=== PATIENT | female | born 1950 | race Caucasian/White ===

== ENCOUNTER 2017-02-24 14:28 | Inpatient (IN) | payer MEDICAID, MEDICARE ==
[~2017-02-24] VITALS: Ht 154.9 cm; Wt 61.2 kg
--- NOTE | 2017-02-24 14:55 | NUR ---
DR GIBBS AT THE BEDSIDE FOR EVAL AND EXAM.
[2017-02-24] MEDS ORDERED: IV NORMAL SALINE 1000 ML BAG IV ONE (15:00)
[2017-02-24] MEDS ORDERED: ONDANSETRON 4 MG/2 ML VIAL IV ONE (15:00)
[2017-02-24] MEDS ORDERED: DONE10TA44 PO (15:02)
[2017-02-24] MEDS ORDERED: MIRT15TA7 PO (15:02)
[2017-02-24] MEDS ORDERED: ONDANSETRON 4 MG/2 ML VIAL ONE (15:11)
[2017-02-24 15:15] LABS: BASOPHILS % (AUTO) 0.7 % (0.0-2.0); EOSINOPHILS # (AUTO) 0.2 K/uL (0.0-0.7); EOSINOPHILS % (AUTO) 2.2 % (0.0-7.0); HEMATOCRIT 42.2 % (31.2-41.9); HEMOGLOBIN 13.8 g/dL (10.9-14.3); LYMPHOCYTES # (AUTO) 3.2 K/uL (20.0-40.0); LYMPHOCYTES % (AUTO) 46.1 % (20.5-51.5); MEAN CORPUSCULAR HEMOGLOBIN 25.2 uug (24.7-32.8); MEAN CORPUSCULAR HGB CONC 33 g/dL (32.3-35.6); MONOCYTES # (AUTO) 0.3 K/uL (2.0-10.0); MONOCYTES % (AUTO) 4.8 % (0.0-11.0); NEUTROPHILS # (AUTO) 3.2 K/uL (1.8-8.9); NEUTROPHILS % (AUTO) 46.2 % (38.5-71.5); PLATELET COUNT (AUTO) 273 K/uL (179-408); RED BLOOD CELL COUNT(AUTO) 5.49 MIL/uL (3.63-4.92); RED CELL DISTRIBUTION WIDTH 13.8 % (12.3-17.7); WHITE BLOOD COUNT (AUTO) 6.9 K/uL (3.8-11.8)
[2017-02-24 15:24] LABS: CALCIUM 9.4 mg/dL (8.5-10.1); CREATININE 0.8 mg/dL (0.6-1.3); POTASSIUM 3.8 mmol/L (3.5-5.1)
[2017-02-24 15:29] LABS: BILIRUBIN,DIRECT 0.1 mg/dL (0.0-0.2); BILIRUBIN,TOTAL 0.3 mg/dL (0.2-1.0); TOTAL PROTEIN, SERUM 7.9 g/dL (6.4-8.2)
[2017-02-24 16:08] LABS: *BILIRUBIN,URIN NEGATIVE (NEGATIVE); *BLOOD, URINE NEGATIVE (NEGATIVE); *CLARITY,URINE CLEAR (CLEAR); *COLOR,URINE YELLOW (YELLOW); *KETONES,URINE NEGATIVE (NEGATIVE); *PROTEIN,URINE NEGATIVE (NEGATIVE); *UROBILINOGEN,URINE 0.2 E.U./dl (NORMAL); NITRITE, URINE NEGATIVE (NEGATIVE); UGLUCOSE NEGATIVE (NEGATIVE)
[2017-02-24 16:12] LABS: LEUKOCYTE ESTERASE ,URINE TRACE (NEGATIVE)
[2017-02-24 16:13] LABS: BACTERIA,URINE NONE SEEN /HPF (NONE SEEN); RBC,URINE 0-3 /HPF (0-3); SQUAMOUS EPITHELIAL CELL,UR FEW /HPF (NONE SEEN)
--- NOTE | 2017-02-24 18:17 | NUR ---
received from ER per wheelchair, awake alert and oriented x 2, follows commands, with c/o abdominal pain on the right side, denies of nausea, routine admission care rendered, oriented to bed controls and call button.
[2017-02-24 18:20] VITALS: BP 116/68
--- NOTE | 2017-02-24 20:00 | NUR ---
RECEIVED PATIENT AWAKE IN BED. A/O X3 BUT FORGETFUL AT TIMES. FARSI SPEAKING BUT ABLE TO MAKE NEEDS KNOWN. PATIENT IS WALKING AROUND ROOM, LOOKING FOR HER SON. COOPERATIVE AND PLEASANT WHEN APPROACHED BUT NEEDS FREQUENT REDIRECTION. PATIENT DENIES PAIN OR DISCOMFORT. NO RESP. DISTRESS NOTED. VSS. CALL LIGHT IN REACH. ALL NEEDS ATTENDED. WILL CONTINUE TO MONITOR.
[2017-02-24 20:16] VITALS: BP 134/78
--- NOTE | 2017-02-24 20:30 | NUR ---
SPOKE WITH DR. DE PAZ FOR ADMISSIONS ORDERS.
[2017-02-24] MEDS: MIRTAZAPINE 15 MG TABLET PO SCH (21:00)
[2017-02-24] MEDS ORDERED: MORPHINE SULFATE 2 MG/1 ML DISP.SYRIN IV PRN (21:15)
[2017-02-24] MEDS ORDERED: ONDANSETRON 4 MG/2 ML VIAL IV PRN (21:15)
[2017-02-24] MEDS ORDERED: ACETAMINOPHEN 325 MG TABLET PO PRN (21:15)
[2017-02-24] MEDS ORDERED: LEVOFLOXACIN 500 MG/D5W 500 MG in PREMIXED 1 EACH IV SCH (21:15)
[2017-02-24] MEDS ORDERED: ZOLPIDEM 5 MG TABLET PO PRN (21:15)
--- NOTE | 2017-02-24 21:30 | NUR ---
RECEIVED ADDITIONAL ADMISSION ORDERS FROM DR. KANG. CALLED HIM TO CLARIFY WHICH MD WILL BE TAKING PATIENT PRIMARY MD. DR. KANG IS MD FOR THIS PATIENT. APPLICATIONS SALES REPRESENTATIVE NOTIFIED. WILL CONTINUE TO MONITOR.
[2017-02-24] MEDS ORDERED: METRONIDAZOLE 500 MG/NS 100ML 500 MG in PREMIXED 1 EACH IV SCH (22:00)
[2017-02-25 04:00] VITALS: BP 128/68
--- NOTE | 2017-02-25 06:14 | NUR ---
PATIENT AWAKE IN ROOM. WAITING FOR SON TO COME THIS MORNING. VSS. DENIES PAIN OR DISCOMFORT. NO RESP. DISTRESS NOTED. SLEPT WELL THROUGHOUT THE NIGHT. CALL LIGHT IN REACH. ALL NEEDS ATTENDED. WILL CONTINUE TO MONITOR.
[2017-02-25 06:56] LABS: BASOPHILS % (AUTO) 0.4 % (0.0-2.0); EOSINOPHILS # (AUTO) 0.2 K/uL (0.0-0.7); EOSINOPHILS % (AUTO) 3.4 % (0.0-7.0); HEMATOCRIT 40.6 % (31.2-41.9); HEMOGLOBIN 13.7 g/dL (10.9-14.3); LYMPHOCYTES # (AUTO) 3.8 K/uL (20.0-40.0); LYMPHOCYTES % (AUTO) 53.3 % (20.5-51.5); MEAN CORPUSCULAR HEMOGLOBIN 26.5 uug (24.7-32.8); MEAN CORPUSCULAR HGB CONC 34 g/dL (32.3-35.6); MEAN CORPUSCULAR VOLUME 78.6 fL (75.5-95.3); MONOCYTES # (AUTO) 0.4 K/uL (2.0-10.0); MONOCYTES % (AUTO) 5.4 % (0.0-11.0); NEUTROPHILS # (AUTO) 2.7 K/uL (1.8-8.9); NEUTROPHILS % (AUTO) 37.5 % (38.5-71.5); PLATELET COUNT (AUTO) 278 K/uL (179-408); RED BLOOD CELL COUNT(AUTO) 5.17 MIL/uL (3.63-4.92); RED CELL DISTRIBUTION WIDTH 13.6 % (12.3-17.7); WHITE BLOOD COUNT (AUTO) 7.1 K/uL (3.8-11.8)
[2017-02-25 07:30] LABS: THYROID STIMULATING HORMONE 4.44 mIU/mL (0.358-3.740)
[2017-02-25] MEDS: PANTOPRAZOLE SODIUM 40 MG TABLET.DR PO SCH (07:47)
[2017-02-25] MEDS: METRONIDAZOLE 500 MG/NS 100ML 500 MG in PREMIXED 1 EACH IV SCH ×3 (07:49→23:18)
[2017-02-25 07:58] LABS: ALBUMIN 3.7 g/dL (3.4-5.0); BILIRUBIN,TOTAL 0.3 mg/dL (0.2-1.0); CREATININE 0.8 mg/dL (0.6-1.3); PHOSPHOROUS 4.3 mg/dL (2.5-4.9); POTASSIUM 4.1 mmol/L (3.5-5.1); TOTAL PROTEIN, SERUM 7.5 g/dL (6.4-8.2)
--- NOTE | 2017-02-25 08:00 | NUR ---
awake alert, up and about in the room, confused but pleasant, waiting for son to come, thoughts very disorganized but follows commands, denies of pain but states she had pain on the right mid abdomen, call lite within reach, on full liquids- appetite fair, no nausea
[2017-02-25] MEDS: LEVOFLOXACIN 500 MG/D5W 500 MG in PREMIXED 1 EACH IV SCH (08:40)
[2017-02-25 08:42] LABS: MAGNESIUM 2.3 mg/dL (1.8-2.4)
[2017-02-25] MEDS: DONEPEZIL 10 MG TABLET PO SCH ×2 (08:47→10:54)
--- NOTE | 2017-02-25 09:00 | NUR ---
seen by Dr Garza
--- NOTE | 2017-02-25 10:30 | NUR ---
seen by Dr Ferreira
[2017-02-25 11:39] VITALS: BP 123/55
--- NOTE | 2017-02-25 12:00 | NUR ---
2D echo done in the room
--- NOTE | 2017-02-25 13:00 | NUR ---
family here visiting
[2017-02-25 15:31] VITALS: BP 116/62
--- NOTE | 2017-02-25 16:01 | NUR ---
walking in the [address] width LEGAL LIBRARIAN
--- NOTE | 2017-02-25 16:30 | NUR ---
out of the room in the [address] with her purse, states will look for son, thinks son is here, pt is confused but calm, assisted back to room and instructed to stay in the room
--- NOTE | 2017-02-25 17:55 | NUR ---
ambulated in the henry with sitter, still confused, very disorganized thoughts
--- NOTE | 2017-02-25 18:55 | NUR ---
resting in bed, no distress noted, 1:1 sitter in the room, call light within reach, all needs attended and met
[2017-02-25 20:00] VITALS: BP 143/73
[2017-02-25] MEDS: MIRTAZAPINE 15 MG TABLET PO SCH (21:28)
[2017-02-26 05:17] VITALS: BP 138/72
--- NOTE | 2017-02-26 05:35 | NUR ---
PATIENT SLEPT INTERMITTENTLY, NO ACUTE DISTRESS. PATIENT IS CONFUSED BUT COOPERATIVE/PLEASANT, TRIED TO GET OUT OF BED SEVERAL TIMES, REORIENTED NEEDED. SAFETY MEASURES IN PLACE, 1:1 SITTER AT BEDSIDE, BED ALARM ON. WILL CONTINUE TO MONITOR
[2017-02-26] MEDS: PANTOPRAZOLE SODIUM 40 MG TABLET.DR PO SCH (06:27)
[2017-02-26 06:43] LABS: CALCIUM 9.1 mg/dL (8.5-10.1); CREATININE 0.9 mg/dL (0.6-1.3); POTASSIUM 3.9 mmol/L (3.5-5.1)
[2017-02-26 06:53] LABS: BASOPHILS % (AUTO) 0.4 % (0.0-2.0); EOSINOPHILS # (AUTO) 0.2 K/uL (0.0-0.7); EOSINOPHILS % (AUTO) 2.7 % (0.0-7.0); HEMATOCRIT 39.5 % (31.2-41.9); LYMPHOCYTES # (AUTO) 2.6 K/uL (20.0-40.0); LYMPHOCYTES % (AUTO) 41.5 % (20.5-51.5); MEAN CORPUSCULAR HEMOGLOBIN 25.2 uug (24.7-32.8); MEAN CORPUSCULAR HGB CONC 33 g/dL (32.3-35.6); MEAN CORPUSCULAR VOLUME 76.7 fL (75.5-95.3); MONOCYTES # (AUTO) 0.5 K/uL (2.0-10.0); MONOCYTES % (AUTO) 7.2 % (0.0-11.0); NEUTROPHILS % (AUTO) 48.2 % (38.5-71.5); PLATELET COUNT (AUTO) 269 K/uL (179-408); RED BLOOD CELL COUNT(AUTO) 5.15 MIL/uL (3.63-4.92); RED CELL DISTRIBUTION WIDTH 13.5 % (12.3-17.7); WHITE BLOOD COUNT (AUTO) 6.3 K/uL (3.8-11.8)
--- NOTE | 2017-02-26 07:30 | NUR ---
PT RECEIVED IN BED AWAKE.SITTER AT BED SIDE .BREAKFAST SERVED.
[2017-02-26] MEDS: METRONIDAZOLE 500 MG/NS 100ML 500 MG in PREMIXED 1 EACH IV SCH ×3 (07:43→23:12)
[2017-02-26] MEDS: DONEPEZIL 10 MG TABLET PO SCH (08:07)
[2017-02-26] MEDS: LEVOFLOXACIN 500 MG/D5W 500 MG in PREMIXED 1 EACH IV SCH (08:34)
[2017-02-26 11:14] VITALS: BP 125/71
[2017-02-26 15:00] VITALS: BP 156/66
[2017-02-26] MEDS ORDERED: LORAZEPAM 1 MG TABLET PO ONE (16:15)
[2017-02-26 20:00] VITALS: BP 142/85
[2017-02-26] MEDS ORDERED: LORAZEPAM 2 MG/1 ML VIAL IM ONE (20:00)
--- NOTE | 2017-02-26 20:00 | NUR ---
Patient very confused, agitated, aggressively trying to leave the room, stated "I'm going home". Comforted, calmed and reoriented patient but was not effective. Called Dr. Ferreira to report about patient's status. Verbal order for Ativan taken and carried out. Safety measures in place, 1:1 sitter at bedside. Will continue to monitor.
[2017-02-26] MEDS ORDERED: LORAZEPAM 2 MG/1 ML VIAL ONE (20:10)
[2017-02-26] MEDS: MIRTAZAPINE 15 MG TABLET PO SCH (20:11)
[2017-02-26] MEDS ORDERED: TRAZODONE 50 MG TABLET PO SCH (21:00)
--- NOTE | 2017-02-26 21:00 | NUR ---
Patient is calm, eating dinner from home, with son at bedside. Patient is in no acute distress. Will continue to monitor.
--- NOTE | 2017-02-26 23:00 | NUR ---
Patient is asleep, in no acute distress. Will continue to monitor.
[2017-02-27 05:14] VITALS: BP 140/70
--- NOTE | 2017-02-27 05:33 | NUR ---
Patient slept well, in no acute distress. No additional episodes of confusion and agitation. Patient is responsive, cooperative. Flagyl IVPB administered as ordered, no s/s of adverse reaction noted. 1:1 sitter for safety. Will continue to monitor.
[2017-02-27] MEDS: PANTOPRAZOLE SODIUM 40 MG TABLET.DR PO SCH (06:21)
[2017-02-27 06:55] LABS: BASOPHILS % (AUTO) 0.6 % (0.0-2.0); EOSINOPHILS # (AUTO) 0.3 K/uL (0.0-0.7); EOSINOPHILS % (AUTO) 3.8 % (0.0-7.0); HEMATOCRIT 40.4 % (31.2-41.9); LYMPHOCYTES # (AUTO) 3.2 K/uL (20.0-40.0); LYMPHOCYTES % (AUTO) 46.6 % (20.5-51.5); MEAN CORPUSCULAR HEMOGLOBIN 24.8 uug (24.7-32.8); MEAN CORPUSCULAR HGB CONC 32 g/dL (32.3-35.6); MEAN CORPUSCULAR VOLUME 76.7 fL (75.5-95.3); MONOCYTES # (AUTO) 0.5 K/uL (2.0-10.0); MONOCYTES % (AUTO) 7.7 % (0.0-11.0); NEUTROPHILS # (AUTO) 2.8 K/uL (1.8-8.9); NEUTROPHILS % (AUTO) 41.3 % (38.5-71.5); PLATELET COUNT (AUTO) 258 K/uL (179-408); RED BLOOD CELL COUNT(AUTO) 5.26 MIL/uL (3.63-4.92); RED CELL DISTRIBUTION WIDTH 13.4 % (12.3-17.7); WHITE BLOOD COUNT (AUTO) 6.8 K/uL (3.8-11.8)
[2017-02-27 07:07] LABS: CALCIUM 9.1 mg/dL (8.5-10.1); POTASSIUM 4.2 mmol/L (3.5-5.1)
--- NOTE | 2017-02-27 07:30 | NUR ---
Patient received resting in bed remains alert and oriented to person, disoriented to place time and situation, delusional when asked reason for admission patient believes she is here because of her arm to be cut in sections, when asked about the date patient verbalizes the , patient redirected to month, patient confused in thoughts goes from one idea to the next, patient anxious, redirectable, cooperative, remains with sitter at bedside for safety. continue to monitor no distress noted at this time.
[2017-02-27] MEDS: METRONIDAZOLE 500 MG/NS 100ML 500 MG in PREMIXED 1 EACH IV SCH (07:57)
[2017-02-27] MEDS: DONEPEZIL 10 MG TABLET PO SCH (08:02)
[2017-02-27] MEDS: LORAZEPAM 0.5 MG TABLET PO PRN ×2 (08:02→22:43)
--- NOTE | 2017-02-27 08:59 | NUR ---
Patient seen by Dr Garza, patient discontinued off antibiotics, per MD patient stable for discharge.
--- NOTE | 2017-02-27 10:45 | NUR ---
SEEN BY DR HURLEY SPOKE WITH DR NOVAK ABOUT DISCHARGE PLAN WITH ORDERS. PLAN DC TO MHU FOR CONTINUITY OF CARE
[2017-02-27] MEDS: QUETIAPINE FUMARATE 25 MG TABLET PO SCH ×2 (11:26→20:46)
--- NOTE | 2017-02-27 15:00 | NUR ---
SON CAME IN REFUSED PATIENT TO GO TO MHU REFERRED TO OYSTER CULTURIST
[2017-02-27 15:04] VITALS: BP 136/64
--- NOTE | 2017-02-27 17:58 | NUR ---
The patient was placed on a 5150 hold today for GD. Her son was not very happy with the hold. This realtime court reporter explained to him the reason for the hold and reassured him that once she is medically and psychiatrically stable, she will be discharged to [facility] [ ; [address] [place] [address]]. Spoke to Ramila and Zoila from [facility] and they stated that they will have Calderon evaluate the patient tomorrow. The patient's son was in agreement. CM/SW will follow-up.
--- NOTE | 2017-02-27 18:27 | NUR ---
DISCHARGE CANCELLED, DC PLAN TO SNF PENDING PSYCHIATRIC CLEARANCE. SON AWARE CONTINUE 1:1 SITTER
[2017-02-27 19:20] VITALS: BP 124/70
--- NOTE | 2017-02-27 19:30 | NUR ---
RESTING IN BED COMFORTABLY. NO ACUTE DISTRESS NOTED. CALM AND COMFORTABLE. FARSI SPEAKING BUT UNDERSTANDS TURKMEN. 1:1 SITTER AT BEDSIDE. SAFETY MAINTAINED. WILL CONTINUE TO MONITOR
[2017-02-27] MEDS: MIRTAZAPINE 15 MG TABLET PO SCH (20:46)
--- NOTE | 2017-02-27 20:46 | NUR ---
ABLE TO TAKE DUE MEDICATIONS ORDERED WITH NO DIFFICULTY. WILL MONITOR
[2017-02-27] MEDS ORDERED: LORAZEPAM 2 MG/1 ML VIAL IM ONE ×2 (23:00→23:30)
--- NOTE | 2017-02-27 23:00 | NUR ---
NOTED PATIENT TO BE OUTSIDE THE ROOM, TALKING TO HERSELF IN FARSI, CONFUSED. UNABLE TO REDIRECT. ATTEMPTED TO GIVE ATIVAN PO ORDERED BUT PATIENT STARTED TO GET AGITATED AND REFUSED MEDICATION. PATIENT THEN STARTED WALKING THROUGH THE HALLWAY, SCREAMING IN FARSI, AGITATED AND UNABLE TO REDIRECT. SAFETY INITIATED. PAGED DR. DAVISON
--- NOTE | 2017-02-27 23:09 | NUR ---
DR. DAVISON CALLED BACK WITH ORDERS, WILL ADMINISTER ORDERED
--- NOTE | 2017-02-27 23:25 | NUR ---
PATIENT STILL AGITATED, SCREAMING AND KICKING AT STAFF, HARD TO CONTROL. UNABLE TO REDIRECT. INFORMED DR. DAVISON WITH ADDITIONAL ORDERS. WILL ADMINISTER ORDERED
[2017-02-27] MEDS ORDERED: HALOPERIDOL LACTATE 5 MG/1 ML VIAL IM ONE (23:30)
[2017-02-27] MEDS ORDERED: BENZTROPINE MESYLATE 2 MG/2 ML AMPUL IM ONE (23:30)
--- NOTE | 2017-02-27 23:35 | NUR ---
PT'S SON IS AT BEDSIDE. SON REFUSED THE ADDITIONAL MEDICATIONS TO BE GIVEN. SON PREFERS TO GIVE SLEEPING PILL INSTEAD.
--- NOTE | 2017-02-28 01:00 | NUR ---
PATIENT WAS ABLE TO TAKE SLEEPING PILL ORDERED, NOW PATIENT IS RESTING CALMLY. WILL CONTINUE TO MONITOR
[2017-02-28 04:24] VITALS: BP 125/64
--- NOTE | 2017-02-28 06:05 | NUR ---
REMAINED CALM AFTER SLEEPING MEDICATION WAS ADMINISTERED ORDERED. ABLE TO SLEEP INTERMITTENTLY. NO ACUTE DISTRESS NOTED. SAFETY MAINTAINED WITH 1:1 SITTER AT BEDSIDE.
[2017-02-28] MEDS: PANTOPRAZOLE SODIUM 40 MG TABLET.DR PO SCH (06:18)
--- NOTE | 2017-02-28 07:31 | NUR ---
PT RECEIVED IN BED TALKING TO HER SELF IN HER LANGUAGE ,SITTER AT BED SIDE..VITAL SIGNS ARE STABLE,ASSESSMENT DONE.PT IS AXOX1
[2017-02-28] MEDS: DONEPEZIL 10 MG TABLET PO SCH (08:01)
[2017-02-28] MEDS: QUETIAPINE FUMARATE 25 MG TABLET PO SCH (08:01)
[2017-02-28 12:18] VITALS: BP 143/78
[2017-02-28] MEDS ORDERED: QUETIAPINE FUMARATE 25 MG TABLET PO PRN (14:30)
[2017-02-28] MEDS ORDERED: TEMAZEPAM 7.5 MG CAPSULE PO PRN (14:30)
[2017-02-28] MEDS ORDERED: QUETIAPINE FUMARATE 25 MG TABLET PO SCH (14:30)
--- NOTE | 2017-02-28 14:38 | NUR ---
D/C ORDERS RECEIVED NOTED AND CARRIED OUT.D/C INSTRUCTIONS AND EDUCATIONS GIVEN TO THE PT.D/C HEPLOCK PER MD ORDERS.D/C PT TO MHU BY WHEEL CHAIR IN STABLE CONDITION
[2017-02-28] MEDS ORDERED: LORA-258 PO (15:37)
[2017-02-28] MEDS ORDERED: PANT40TA2 PO (15:37)
[2017-02-28] MEDS ORDERED: QUET25TA PO (15:37)
[2017-02-28] MEDS ORDERED: ACET-2154 PO (15:37)
== END 2017-02-28 14:44 | DRG 393 ==
LOC: EDBD 14:28 → ER 14:28 → MED 17:25
PROVIDERS: ADMIT Internal Medicine; ATTEND Internal Medicine
DX: I88.0 Nonspecific mesenteric lymphadenitis (principal); G93.40 Encephalopathy, unspecified; K57.90 Diverticulosis of intestine, part unspecified, without perforation or abscess without bleeding; K76.0 Fatty (change of) liver, not elsewhere classified; K59.00 Constipation, unspecified; E11.65 Type 2 diabetes mellitus with hyperglycemia; I67.2 Cerebral atherosclerosis; F32.9 Major depressive disorder, single episode, unspecified; I70.8 Atherosclerosis of other arteries; J43.9 Emphysema, unspecified; Z74.09 Other reduced mobility; E78.5 Hyperlipidemia, unspecified; F09 Unspecified mental disorder due to known physiological condition; F02.80 Dementia in other diseases classified elsewhere, unspecified severity, without behavioral disturbance, psychotic disturbance, mood disturbance, and anxiety; G30.9 Alzheimer's disease, unspecified; F01.50 Vascular dementia, unspecified severity, without behavioral disturbance, psychotic disturbance, mood disturbance, and anxiety; B34.9 Viral infection, unspecified; G47.00 Insomnia, unspecified
CPT/HCPCS: 36415; 70030-TC; 70450; 71010; 83690; 83735; 84100; 84443; 85025; 85730; 87086; 93005; 93307; A4663; J0515; J1956; J2060; J2405; J3490; J7030; J7050

== ENCOUNTER 2017-02-28 14:58 | Inpatient (IN) | payer MEDICARE ==
[~2017-02-28] VITALS: Ht 154.9 cm; Wt 60.3 kg
[~2017-02-28 14:58] MED LIST: DONE10TA44 PO; MIRT15TA7 PO
--- NOTE | 2017-02-28 15:30 | NUR ---
PT RECEIVED FROM MEDICAL SURGICAL FLOOR VIA WHEELCHAIR FOR PSYCHOSIS NOS IN STABLE CONDITION.PT IS AXOX3 .ORIENT THE PT TO ROOM AND SURROUNDINGS,SITTER AT BED SIDE.
[2017-02-28] MEDS ORDERED: ACET-2154 PO (15:37)
[2017-02-28] MEDS ORDERED: PANT40TA2 PO (15:37)
[2017-02-28] MEDS ORDERED: QUET25TA PO (15:37)
[2017-02-28] MEDS ORDERED: LORA-258 PO (15:37)
[2017-02-28 15:57] VITALS: BP 128/67
[2017-02-28] MEDS ORDERED: MAG HYDROX/AL HYDROX/SIMETH 30 ML LIQUID UDC PO PRN (16:00)
[2017-02-28] MEDS ORDERED: MAGNESIUM HYDROXIDE 30 ML LIQUID UDC PO PRN (16:00)
[2017-02-28 20:00] VITALS: BP 150/89
--- NOTE | 2017-02-28 20:00 | NUR ---
RECEIVED PATIENT AWAKE IN BED. A/O X2. VERY FORGETFUL AND NEEDS FREQUENT REDIRECTION. SON AT BEDSIDE TO VISIT AND 1:1 SITTER AT BEDSIDE FOR SAFETY. PATIENT DENIES PAIN OR DISCOMFORT. NO RESP. DISTRESS NOTED. PROVIDED SAFE AND THERAPEUTIC ENVIRONMENT. CALL LIGHT IN REACH. ALL NEEDS ATTENDED. WILL CONTINUE TO MONITOR.
[2017-02-28] MEDS: TEMAZEPAM 7.5 MG CAPSULE PO PRN (20:47)
[2017-02-28] MEDS: ACETAMINOPHEN 325 MG TABLET PO PRN (20:48)
--- NOTE | 2017-02-28 20:50 | NUR ---
PATIENT AWAKE IN BED. SON PRESENT AT BEDSIDE. PATIENT C/O HEADACHE. GIVEN TYLENOL 650MG PO PRN FOR BASSETT. PATIENT ALSO GIVEN RESTORIL 7.5MG PO PRN FOR SLEEP. SITTER AT BEDSIDE. WILL CONTINUE TO MONITOR.
--- NOTE | 2017-02-28 22:00 | NUR ---
PATIENT ASLEEP IN BED. NO RESP. DISTRESS NOTED. SITTER AT BEDSIDE. WILL CONTINUE TO MONITOR.
--- NOTE | 2017-03-01 01:30 | NUR ---
nsg: pt received fr nurse Peters. pt sleeping at this time. no acute distress noted. sitter at the bedside.
[2017-03-01 05:52] VITALS: BP 148/78
--- NOTE | 2017-03-01 05:58 | NUR ---
no change in condition.
--- NOTE | 2017-03-01 06:14 | NUR ---
nsg: pt slept for a total of 9 hrs
[2017-03-01 08:00] VITALS: BP 132/80
--- NOTE | 2017-03-01 08:00 | NUR ---
awake, ambulatory, confused with disorganized thoughts, follows commands, sitter in the room, denies of pain, safety measures maintained
[2017-03-01 13:00] VITALS: BP 130/76
--- NOTE | 2017-03-01 14:40 | NUR ---
seen by Dr Roberts with orders
--- NOTE | 2017-03-01 15:30 | NUR ---
son here visiting
[2017-03-01 16:00] VITALS: BP 140/74
[2017-03-01] MEDS: QUETIAPINE FUMARATE 25 MG TABLET PO SCH (17:03)
--- NOTE | 2017-03-01 17:52 | NUR ---
been calm and cooperative, pleasant, no hallucinations noted. no suicidal ideation noted, all needs attended and met. 1:1 sitter in the room, safety measures maintained
[2017-03-01 20:00] VITALS: BP 152/72
--- NOTE | 2017-03-01 20:00 | NUR ---
RECEIVED PATIENT AWAKE IN ROOM. ALERT TO SELF. CONFUSED AND DISORIENTED BUT PLEASANT WHEN APPROACHED. DENIES PAIN. NO RESP. DISTRESS NOTED. VSS. SITTER AT BEDSIDE. CALL LIGHT IN REACH. ALL NEEDS ATTENDED, WILL CONTINUE TO MONITOR.
[2017-03-01] MEDS: MIRTAZAPINE 15 MG TABLET PO SCH (20:13)
[2017-03-01] MEDS: TEMAZEPAM 7.5 MG CAPSULE PO PRN (21:26)
[2017-03-01] MEDS: ACETAMINOPHEN 325 MG TABLET PO PRN (21:27)
[2017-03-02 04:00] VITALS: BP 118/68
--- NOTE | 2017-03-02 06:40 | NUR ---
PATIENT AWAKE IN ROOM. SLEPT 7 HOURS AND 15 MINUTES. SITTER AT BEDSIDE FOR SAFETY. CALL LIGHT IN REACH. ALL NEEDS ATTENDED. WILL CONTINUE TO MONITOR.
[2017-03-02 07:03] LABS: BASOPHILS % (AUTO) 0.5 % (0.0-2.0); EOSINOPHILS # (AUTO) 0.2 K/uL (0.0-0.7); EOSINOPHILS % (AUTO) 2.4 % (0.0-7.0); HEMATOCRIT 42.8 % (31.2-41.9); HEMOGLOBIN 13.7 g/dL (10.9-14.3); LYMPHOCYTES % (AUTO) 56.4 % (20.5-51.5); MEAN CORPUSCULAR HEMOGLOBIN 24.6 uug (24.7-32.8); MEAN CORPUSCULAR HGB CONC 32 g/dL (32.3-35.6); MONOCYTES # (AUTO) 0.5 K/uL (2.0-10.0); MONOCYTES % (AUTO) 6.4 % (0.0-11.0); NEUTROPHILS # (AUTO) 2.9 K/uL (1.8-8.9); NEUTROPHILS % (AUTO) 34.3 % (38.5-71.5); PLATELET COUNT (AUTO) 303 K/uL (179-408); RED BLOOD CELL COUNT(AUTO) 5.56 MIL/uL (3.63-4.92); RED CELL DISTRIBUTION WIDTH 13.9 % (12.3-17.7); WHITE BLOOD COUNT (AUTO) 8.6 K/uL (3.8-11.8)
[2017-03-02 07:18] LABS: CALCIUM 9.3 mg/dL (8.5-10.1); CREATININE 0.8 mg/dL (0.6-1.3); POTASSIUM 4.2 mmol/L (3.5-5.1)
[2017-03-02 07:56] VITALS: BP 146/75
[2017-03-02] MEDS: QUETIAPINE FUMARATE 25 MG TABLET PO SCH ×2 (08:00→17:23)
--- NOTE | 2017-03-02 08:00 | NUR ---
awake alert oriented to self, states" my mom " with a sad face, diverted her attention, still with disorganized thoughts, 1:1 sitter in the room, denies of pain, no suicidal ideation noted, breakfast served and took width minimal assistance- ate 75 %. needs redirection, safety measures maintained
--- NOTE | 2017-03-02 11:30 | NUR ---
son here visiting
[2017-03-02 12:00] VITALS: BP 143/75
--- NOTE | 2017-03-02 12:39 | NUR ---
back in the room for lunch after walking in the hallway and in the waiting area with son. pt calm and cooperative
--- NOTE | 2017-03-02 13:00 | NUR ---
Dr Roberts here and saw pt- spoke to son
[2017-03-02 16:00] VITALS: BP 139/77
--- NOTE | 2017-03-02 18:54 | NUR ---
no episode of crying this shift although looks sad, calm and cooperative, at times keeps her purse with her and says son is waiting for her, sitter with her, all needs attended and met, remains confused , with disorganized thoughts but no suicidal ideation noted, appetite good and voiding qs
--- NOTE | 2017-03-02 19:00 | NUR ---
Received report from SHANTELLE Claudio
--- NOTE | 2017-03-02 19:30 | NUR ---
Rceived patient awake, chatting with her sitter by her room. Denies any pain. Really confused and paranoia. Continue on 1:1 status as ordered.
--- NOTE | 2017-03-02 19:43 | NUR ---
Ambulating in the hallways with sitter at her side. Talking incoherently. Safety measures maintained.
[2017-03-02 20:00] VITALS: BP 142/76
[2017-03-02] MEDS: MIRTAZAPINE 15 MG TABLET PO SCH (20:29)
[2017-03-02] MEDS: TEMAZEPAM 7.5 MG CAPSULE PO PRN (20:30)
--- NOTE | 2017-03-03 05:06 | NUR ---
Slept at long interval. No problem presented throughout the shift. Sitter remain at bedside. Safety measures and fall precaution maintained. All needs attended and met. No significant event reported all night. Continue care as planned.
[2017-03-03 08:00] VITALS: BP 141/77
--- NOTE | 2017-03-03 08:00 | NUR ---
awake alert, oriented to self only, confused, disorganized thoughts width flight of ideas, needs constant monitoring, wanted to walk around to look for her son, reoriented, breakfast served, sitter at bedside, safety measures maintained
[2017-03-03] MEDS: QUETIAPINE FUMARATE 25 MG TABLET PO SCH ×2 (08:11→17:28)
--- NOTE | 2017-03-03 12:00 | NUR ---
seen by Dr Ferreira
--- NOTE | 2017-03-03 12:15 | NUR ---
son here visiting
[2017-03-03 16:00] VITALS: BP 163/68
--- NOTE | 2017-03-03 16:38 | NUR ---
Initial discharge instructions: Patient resides at home alone [[address], [place],[address]] and has constant visits from her son-Elle [phone].Spoke with Elle who stated he would like the patient placed at a nursing home facility.SW will speak with pt,family,and MD regarding appropriate discharge plans.SW will form a safe and proper discharge.
--- NOTE | 2017-03-03 19:02 | NUR ---
no distress noted, calm at this time, ate dinner after convincing her, sitter in the room, all needs attended and met
[2017-03-03 20:00] VITALS: BP 134/74
[2017-03-03] MEDS ORDERED: QUETIAPINE FUMARATE 25 MG TABLET PO SCH (20:00)
--- NOTE | 2017-03-03 20:00 | NUR ---
Received pt in room awake/alert to self, calm and cooperative at this time. Patient states she's waiting for son to take her home, redirected/reoriented. 1:1 sitter at bedside. pt near nursing station for safety. all needs attended at this time. Denies s/i. Will continue to monitor.
[2017-03-03] MEDS: TEMAZEPAM 7.5 MG CAPSULE PO PRN (20:49)
[2017-03-03] MEDS: MIRTAZAPINE 15 MG TABLET PO SCH (20:52)
--- NOTE | 2017-03-04 00:11 | NUR ---
PATIENT IN BED SLEEPING COMFORTABLY AT THIS TIME. EVEN AND NONLABORED BREATHING OBSERVED. 1:1 SITTER AT BEDSIDE FOR SAFETY. WILL CONTINUE TO MONITOR.
--- NOTE | 2017-03-04 06:10 | NUR ---
Pt slept well, for 6 hrs per shift. No acute distress throughout shift. Compliant with medications. No behaviors noted, easily redirectable. 1:1 sitter at bedside at all times. Safety maintained.
[2017-03-04] MEDS: QUETIAPINE FUMARATE 25 MG TABLET PO SCH ×4 (08:35→20:23)
[2017-03-04] MEDS: LORAZEPAM 0.5 MG TABLET PO PRN ×2 (08:38→23:57)
[2017-03-04] MEDS: DIVALPROEX 125 MG TABLET.DR PO SCH ×3 (10:57→13:00)
[2017-03-04 11:37] VITALS: BP 145/81
[2017-03-04] MEDS: METOPROLOL TARTRATE 25 MG TABLET PO SCH ×2 (12:21→20:23)
--- NOTE | 2017-03-04 14:55 | NUR ---
PT. HAS BEEN VERY AGITATED ALL DAY--BECOMING MORE AGITATED. DR. DAVISON IN TO SEE PT.---INFORMED OF ABOVE. ORDERS--MEDS GIVEN. TRANSFERRED TO MHU VIA W/C BY FALGUNI
[2017-03-04 15:34] VITALS: BP 121/65
[2017-03-04] MEDS: MIRTAZAPINE 15 MG TABLET PO SCH (20:23)
[2017-03-04] MEDS: ATORVASTATIN 20 MG TABLET PO SCH (20:23)
--- NOTE | 2017-03-04 20:30 | NUR ---
Patient received standing in hallway. Observed to be very anxious and paranoid, requires redirection. Pt is confused and forgetful. No acute distress noted. Safety measures provided.
[2017-03-04 20:55] VITALS: BP 130/70
[2017-03-04] MEDS: TEMAZEPAM 7.5 MG CAPSULE PO PRN (21:39)
--- NOTE | 2017-03-04 21:45 | NUR ---
Patient remains anxious and restless, observed pacing hallway and entering nursing station talking in [facility]. Pt remains confused and disorganized. Pt given restoril for insomnia, tolerated well. no acute distress noted.
--- NOTE | 2017-03-05 00:05 | NUR ---
Pt still anxious and becoming irritable, given ativan prn as ordered.
--- NOTE | 2017-03-05 04:00 | NUR ---
Pt in bed sleeping, breathing unlabored. No acute distress noted. Safety measures provided.
[2017-03-05 07:30] VITALS: BP 144/71
[2017-03-05] MEDS: METOPROLOL TARTRATE 25 MG TABLET PO SCH ×2 (08:20→20:10)
[2017-03-05] MEDS: DIVALPROEX 125 MG TABLET.DR PO SCH ×2 (08:23→17:58)
[2017-03-05] MEDS: QUETIAPINE FUMARATE 25 MG TABLET PO SCH ×4 (08:24→20:09)
--- NOTE | 2017-03-05 11:15 | NUR ---
WEEKLY MEETING PO INTAKE FLUCTUATING 0-100%, RECOMMEND ADDING BOOST ONCE DAILY IF PO INTAKE <50% LAST BM ON 03/03 SKIN INTACT NOTED 2 LB WT LOSS IN 4 DAYS, NOT SIGNIFICANT WT LOSS, MONITOR WT MEDS:LIPITOR, LOPRESSOR, REMERON NO DNI NOTED LABS: 03/02: CHOL 236 (H), LDL 149 (H), HDL 78 (H), REC FISH OIL MONITOR PO INTAKE, LABS, WEIGHT SUBOPTIMAL PO INTAKE R/T MENTAL STATUS EVIDENCED BY PO INTAKE 0-100% Addendum: 03/05/17 at [address] Amended: Links added.
[2017-03-05] MEDS: LORAZEPAM 0.5 MG TABLET PO PRN ×2 (11:24→22:00)
[2017-03-05 16:00] VITALS: BP 98/62
[2017-03-05 19:30] VITALS: BP 174/93
[2017-03-05] MEDS: MIRTAZAPINE 15 MG TABLET PO SCH (20:09)
[2017-03-05] MEDS: ATORVASTATIN 20 MG TABLET PO SCH (20:09)
[2017-03-05 20:20] VITALS: BP 137/87
[2017-03-05] MEDS ORDERED: CLONIDINE-TTS 1 PATCH TD SCH (20:30)
--- NOTE | 2017-03-05 22:00 | NUR ---
ADDENDUM; pt was very agitated earlier. she was in the dining room, yelling in [facility], appearing very nervous and shaky, with an elevated b/p. this health science writer attempted to offer her medications, including b/p med, and psychotropic meds. she ionitially took the med cup, but squeezed it in her hand, and refused to give it back, this health science writer attempted to retrieve the med cup from her, but she became aggressive, attempting to scratch this health science writer, and biting another staff on the shoulder. she eventually calmed down, and took her meds, after speaking to another staff, in [facility].
--- NOTE | 2017-03-05 22:00 | NUR ---
received to care, very anxious and nervous, yelling in farsi, difficult to redirect, or orient to reality. b/p was initially 174/93, HR 141. at first, she refused all medications, calmed down, and took them, after speaking with a staff member, who speaks farsi. by 2014, her b/p was 137/87, HR 95. a catapres patch was placed at 2040, and, as of 2199, she remains restless, standing at nurses station, difficult to redirect.PRN ativan was given at this time. will continue to monitor closely.
[2017-03-05] MEDS: TEMAZEPAM 7.5 MG CAPSULE PO PRN (23:09)
--- NOTE | 2017-03-05 23:09 | NUR ---
appears calmer, but remains restless, standing at nurses station. PRN restoril was given at this time.
--- NOTE | 2017-03-05 23:09 | NUR ---
appears calmer, but remains restless, standing a tm Addendum: 03/06/17 at 0036 by SUJATA DEL RIO LVN ERROR
--- NOTE | 2017-03-05 23:45 | NUR ---
went to bed at 2330, and, as of 2344, appears asleep. no distress noted. will continue to monitor closely.
--- NOTE | 2017-03-06 06:00 | NUR ---
slept 6.5 hours. remains asleep, but easy to awaken. no distress noted. will continue to monitor closely.
[2017-03-06 07:30] VITALS: BP 131/76
[2017-03-06 07:34] LABS: BASOPHILS % (AUTO) 0.5 % (0.0-2.0); EOSINOPHILS # (AUTO) 0.2 K/uL (0.0-0.7); EOSINOPHILS % (AUTO) 2.9 % (0.0-7.0); HEMATOCRIT 38.4 % (37-47); HEMOGLOBIN 12.5 G/DL (12.0-16.0); LYMPHOCYTES # (AUTO) 4.4 K/uL (20.0-40.0); MEAN CORPUSCULAR HEMOGLOBIN 25.1 UUG (27.0-31.0); MEAN CORPUSCULAR HGB CONC 33 g/dL (32.0-37.0); MEAN CORPUSCULAR VOLUME 77.4 FL (81.0-99.0); MONOCYTES # (AUTO) 0.6 K/uL (2.0-10.0); MONOCYTES % (AUTO) 7.3 % (0.0-11.0); NEUTROPHILS # (AUTO) 3.2 K/uL (1.8-8.9); NEUTROPHILS % (AUTO) 38.3 % (38.5-71.5); PLATELET COUNT (AUTO) 264 K/UL (150-450); RED BLOOD CELL COUNT(AUTO) 4.97 MIL/UL (4.2-5.4); RED CELL DISTRIBUTION WIDTH 13.5 % (11.5-14.5); WHITE BLOOD COUNT (AUTO) 8.4 K/UL (4.0-11.2)
[2017-03-06 07:54] LABS: ALBUMIN 3.5 g/dL (3.4-5.0); BILIRUBIN,TOTAL 0.3 mg/dL (0.2-1.0); CALCIUM 9.2 mg/dL (8.5-10.1); CREATININE 0.8 mg/dL (0.6-1.3); MAGNESIUM 2.1 mg/dL (1.8-2.4); PHOSPHOROUS 4.1 mg/dL (2.5-4.9); POTASSIUM 3.8 mmol/L (3.5-5.1); TOTAL PROTEIN, SERUM 6.9 g/dL (6.4-8.2)
[2017-03-06] MEDS: DIVALPROEX 125 MG TABLET.DR PO SCH ×2 (09:24→17:35)
[2017-03-06] MEDS: QUETIAPINE FUMARATE 25 MG TABLET PO SCH ×4 (09:25→20:25)
[2017-03-06] MEDS: METOPROLOL TARTRATE 25 MG TABLET PO SCH ×2 (09:25→20:24)
[2017-03-06] MEDS ORDERED: DIVALPROEX 125 MG TABLET.DR PO ONE (14:15)
[2017-03-06 15:10] VITALS: BP 145/73
[2017-03-06] MEDS ORDERED: QUETIAPINE FUMARATE 25 MG TABLET PO PRN (20:00)
--- NOTE | 2017-03-06 20:00 | NUR ---
Patient received standing in hallway. Observed to be very anxious and paranoid, requires redirection. Pt is confused and forgetful. No acute distress noted. Safety measures provided.
[2017-03-06] MEDS: MIRTAZAPINE 15 MG TABLET PO SCH (20:24)
[2017-03-06] MEDS: ATORVASTATIN 20 MG TABLET PO SCH (20:25)
[2017-03-06 21:06] VITALS: BP 144/68
[2017-03-06] MEDS: LORAZEPAM 0.5 MG TABLET PO PRN (21:13)
[2017-03-07] MEDS: TEMAZEPAM 7.5 MG CAPSULE PO PRN (00:12)
--- NOTE | 2017-03-07 00:15 | NUR ---
Observed anxious and restless, given restoril prn as ordered. Pt compliant with medications. Will continue to monitor for safety.
--- NOTE | 2017-03-07 06:12 | NUR ---
patient slept well through out the night, pt slept 6.30 hours. No acute distress noted. refused shower this morning. Safety measures maintained.
[2017-03-07 07:30] VITALS: BP 98/54
[2017-03-07] MEDS ORDERED: QUETIAPINE FUMARATE 25 MG TABLET PO SCH ×3 (08:00→20:00)
[2017-03-07 08:03] LABS: BASOPHILS % (AUTO) 0.5 % (0.0-2.0); EOSINOPHILS # (AUTO) 0.2 K/uL (0.0-0.7); EOSINOPHILS % (AUTO) 3.3 % (0.0-7.0); HEMATOCRIT 39.8 % (37-47); HEMOGLOBIN 12.8 G/DL (12.0-16.0); LYMPHOCYTES # (AUTO) 3.4 K/uL (20.0-40.0); LYMPHOCYTES % (AUTO) 53.9 % (20.5-51.5); MEAN CORPUSCULAR HEMOGLOBIN 24.8 UUG (27.0-31.0); MEAN CORPUSCULAR HGB CONC 32 g/dL (32.0-37.0); MEAN CORPUSCULAR VOLUME 76.8 FL (81.0-99.0); MONOCYTES # (AUTO) 0.5 K/uL (2.0-10.0); MONOCYTES % (AUTO) 7.2 % (0.0-11.0); NEUTROPHILS # (AUTO) 2.3 K/uL (1.8-8.9); NEUTROPHILS % (AUTO) 35.1 % (38.5-71.5); PLATELET COUNT (AUTO) 272 K/UL (150-450); RED BLOOD CELL COUNT(AUTO) 5.18 MIL/UL (4.2-5.4); RED CELL DISTRIBUTION WIDTH 13.5 % (11.5-14.5); WHITE BLOOD COUNT (AUTO) 6.4 K/UL (4.0-11.2)
[2017-03-07 08:18] LABS: ALBUMIN 3.5 g/dL (3.4-5.0); BILIRUBIN,TOTAL 0.2 mg/dL (0.2-1.0); CREATININE 0.7 mg/dL (0.6-1.3); TOTAL PROTEIN, SERUM 7.2 g/dL (6.4-8.2)
[2017-03-07] MEDS: DIVALPROEX 125 MG TABLET.DR PO SCH ×2 (08:50→20:08)
[2017-03-07] MEDS: METOPROLOL TARTRATE 25 MG TABLET PO SCH ×2 (08:50→20:08)
[2017-03-07] MEDS: QUETIAPINE FUMARATE 25 MG TABLET PO SCH ×2 (12:33→17:40)
--- NOTE | 2017-03-07 12:50 | NUR ---
PATIENT HAD AN EPISODE OF AGITATION, WHEN SHE RECEIVED HER LUNCH TRAY. PT PICKED UP THE TRAY AND BEGAN TO WALK AROUND WITH IT, TALKING OUT LOUD IN FARSI. ATTEMPTED TO REDIRECT TO HER ROOM, PT BECAME IRRITABLE, SAYING "WHY IS THIS MY ROOM? I DON'T WANT IT, IT'S NOT RIGHT!". ATTEMPTED TO REDIRECT TO THE DINNING ROOM, PT WAS STILL ANGRY, SAYING IT'S NOT THE ROOM, SHE NEEDS TO SEE THE DOCTOR, SHE WANTS HER SON HERE. PT SPEAKS NON-SENSE, IRRITABLE, DOES NOT LISTEN TO REDIRECTIONS. THEN PT BEGAN CRYING IN THE DINNING ROOM, UNABLE TO STATE THE TRIGGER. PT RECEIVED HER 1300 SEROQUEL 50 MG. WILL CONTINUE TO MONITOR.
[2017-03-07 15:12] VITALS: BP 119/65
[2017-03-07] MEDS ORDERED: DIVALPROEX 125 MG TABLET.DR PO SCH (17:00)
[2017-03-07] MEDS: ATORVASTATIN 20 MG TABLET PO SCH (20:07)
[2017-03-07 20:28] VITALS: BP 122/69
[2017-03-08] MEDS: TEMAZEPAM 7.5 MG CAPSULE PO PRN ×2 (00:03→21:11)
[2017-03-08 07:51] VITALS: BP 107/56
[2017-03-08] MEDS: QUETIAPINE FUMARATE 25 MG TABLET PO SCH ×3 (08:41→17:03)
[2017-03-08] MEDS: DIVALPROEX 125 MG TABLET.DR PO SCH ×2 (08:41→21:11)
[2017-03-08] MEDS: METOPROLOL TARTRATE 25 MG TABLET PO SCH ×3 (08:42→23:30)
[2017-03-08] MEDS: risperiDONE 0.25 MG TABLET PO SCH ×2 (12:04→17:03)
[2017-03-08] MEDS: LORAZEPAM 0.5 MG TABLET PO PRN (14:32)
[2017-03-08 15:32] VITALS: BP 110/64
[2017-03-08] MEDS: ACETAMINOPHEN 325 MG TABLET PO PRN (17:07)
[2017-03-08] MEDS: QUETIAPINE FUMARATE 100 MG TABLET PO SCH ×2 (20:00→23:30)
[2017-03-08] MEDS ORDERED: QUETIAPINE FUMARATE 25 MG TABLET PO SCH (20:00)
[2017-03-08 20:40] LABS: BASOPHILS # (AUTO) 0.1 K/uL (0.0-8.0); EOSINOPHILS # (AUTO) 0.1 K/uL (0.0-0.7); EOSINOPHILS % (AUTO) 1.8 % (0.0-7.0); HEMATOCRIT 38.3 % (37-47); HEMOGLOBIN 12.5 G/DL (12.0-16.0); LYMPHOCYTES # (AUTO) 3.6 K/uL (20.0-40.0); LYMPHOCYTES % (AUTO) 45.8 % (20.5-51.5); MEAN CORPUSCULAR HEMOGLOBIN 25.1 UUG (27.0-31.0); MEAN CORPUSCULAR HGB CONC 33 g/dL (32.0-37.0); MEAN CORPUSCULAR VOLUME 76.8 FL (81.0-99.0); MONOCYTES # (AUTO) 0.4 K/uL (2.0-10.0); MONOCYTES % (AUTO) 5.3 % (0.0-11.0); NEUTROPHILS # (AUTO) 3.5 K/uL (1.8-8.9); NEUTROPHILS % (AUTO) 46.1 % (38.5-71.5); PLATELET COUNT (AUTO) 273 K/UL (150-450); RED BLOOD CELL COUNT(AUTO) 4.98 MIL/UL (4.2-5.4); RED CELL DISTRIBUTION WIDTH 13.2 % (11.5-14.5); WHITE BLOOD COUNT (AUTO) 7.7 K/UL (4.0-11.2)
[2017-03-08 20:44] VITALS: BP 103/60
[2017-03-08 20:51] LABS: ALBUMIN 3.4 g/dL (3.4-5.0); BILIRUBIN,TOTAL 0.3 mg/dL (0.2-1.0); CALCIUM 8.5 mg/dL (8.5-10.1); TOTAL PROTEIN, SERUM 6.8 g/dL (6.4-8.2)
[2017-03-08] MEDS ORDERED: DONEPEZIL 5 MG TABLET PO SCH (21:00)
[2017-03-08] MEDS: ATORVASTATIN 20 MG TABLET PO SCH (21:11)
--- NOTE | 2017-03-09 00:27 | NUR ---
GPS/NSG Patient observed on unit awake, alert, pacing hallway, in and out of room, confused with increased anxiety. Vital signs taken, vital signs within normal limits previously held medication administered then redirected to room. Will monitor for safety and patient well being.
[2017-03-09 07:30] VITALS: BP 129/71
[2017-03-09] MEDS: risperiDONE 0.25 MG TABLET PO SCH (08:13)
[2017-03-09] MEDS: DIVALPROEX 125 MG TABLET.DR PO SCH ×2 (08:13→20:07)
[2017-03-09] MEDS: QUETIAPINE FUMARATE 25 MG TABLET PO SCH ×3 (08:13→16:08)
[2017-03-09] MEDS: METOPROLOL TARTRATE 25 MG TABLET PO SCH ×2 (08:17→20:05)
[2017-03-09] MEDS: risperiDONE 0.5 MG TABLET PO SCH ×2 (12:15→16:08)
[2017-03-09] MEDS ORDERED: risperiDONE 0.25 MG TABLET PO SCH (13:00)
[2017-03-09 15:38] VITALS: BP 128/77
[2017-03-09 20:00] VITALS: BP 126/77
[2017-03-09] MEDS: ATORVASTATIN 20 MG TABLET PO SCH (20:05)
[2017-03-09] MEDS: QUETIAPINE FUMARATE 100 MG TABLET PO SCH (20:06)
[2017-03-09] MEDS: LORAZEPAM 0.5 MG TABLET PO PRN (21:57)
[2017-03-09] MEDS: TEMAZEPAM 7.5 MG CAPSULE PO PRN (23:46)
[2017-03-10 00:01] LABS: *BILIRUBIN,URIN NEGATIVE (NEGATIVE); *BLOOD, URINE Trace-intact (NEGATIVE); *COLOR,URINE STRAW (YELLOW); *KETONES,URINE NEGATIVE (NEGATIVE); *PROTEIN,URINE NEGATIVE (NEGATIVE); *UROBILINOGEN,URINE 0.2 E.U./dl (NORMAL); LEUKOCYTE ESTERASE ,URINE 2+ (NEGATIVE); NITRITE, URINE NEGATIVE (NEGATIVE); UGLUCOSE TRACE (NEGATIVE)
[2017-03-10 00:03] LABS: *CLARITY,URINE HAZY (CLEAR)
[2017-03-10 00:15] LABS: BACTERIA,URINE FEW /HPF (NONE SEEN); RBC,URINE 0-3 /HPF (0-3); SQUAMOUS EPITHELIAL CELL,UR FEW /HPF (NONE SEEN); WBC,URINE 20-50 /HPF (0-3)
[2017-03-10 07:30] VITALS: BP 121/53
[2017-03-10] MEDS: METOPROLOL TARTRATE 25 MG TABLET PO SCH ×2 (08:24→19:39)
[2017-03-10] MEDS: QUETIAPINE FUMARATE 25 MG TABLET PO SCH ×3 (08:24→16:31)
[2017-03-10] MEDS: DIVALPROEX 125 MG TABLET.DR PO SCH ×2 (08:24→19:38)
[2017-03-10] MEDS: risperiDONE 0.5 MG TABLET PO SCH ×3 (08:24→16:31)
[2017-03-10 15:26] VITALS: BP 140/71
[2017-03-10] MEDS: SULFAMETH/TRIMETH 800/160 MG TABLET PO SCH ×2 (16:24→19:37)
[2017-03-10] MEDS: ATORVASTATIN 20 MG TABLET PO SCH (19:37)
[2017-03-10 20:00] VITALS: BP 146/75
[2017-03-10] MEDS ORDERED: QUETIAPINE FUMARATE 100 MG TABLET PO SCH (20:00)
[2017-03-10] MEDS ORDERED: QUETIAPINE FUMARATE 200 MG TABLET PO SCH (20:00)
[2017-03-10] MEDS: TEMAZEPAM 7.5 MG CAPSULE PO PRN (21:20)
[2017-03-11] MEDS: LORAZEPAM 0.5 MG TABLET PO PRN (02:49)
--- NOTE | 2017-03-11 04:00 | NUR ---
WOKE UP THEN GOT OOB.PT BECAME MORE PSYCHOTIC-SO CONFUSED WITH DISORGANIZED THOUGHT,TALKING TO HERSELF LOUDER AND LOUDER,WANDERING AND KEPT FOLLOWING STAFFS TO LOOKING FOR HER SON.FLUSHED FACE NOTICED.NO HEBREW ,PT SPOKE ONLY FARSI SINCE LAST NIGHT.PRN MED WAS GIVEN FOT ANXIETY/AGITATION @ 0249 AM. WITH SL.EFF..
[2017-03-11 07:30] VITALS: BP 110/49
[2017-03-11 07:46] LABS: BASOPHILS # (AUTO) 0.1 K/uL (0.0-8.0); BASOPHILS % (AUTO) 0.9 % (0.0-2.0); EOSINOPHILS # (AUTO) 0.1 K/uL (0.0-0.7); EOSINOPHILS % (AUTO) 2.1 % (0.0-7.0); HEMATOCRIT 40.4 % (37-47); HEMOGLOBIN 13.1 G/DL (12.0-16.0); LYMPHOCYTES # (AUTO) 2.9 K/UL (0.8-4.8); LYMPHOCYTES % (AUTO) 43.7 % (20.5-51.5); MEAN CORPUSCULAR HGB CONC 33 g/dL (32.0-37.0); MEAN CORPUSCULAR VOLUME 77.2 FL (81.0-99.0); MONOCYTES # (AUTO) 0.3 K/UL (0.1-1.30); MONOCYTES % (AUTO) 4.6 % (0.0-11.0); NEUTROPHILS # (AUTO) 3.2 K/UL (1.8-8.9); NEUTROPHILS % (AUTO) 48.7 % (38.5-71.5); PLATELET COUNT (AUTO) 262 K/UL (150-450); RED BLOOD CELL COUNT(AUTO) 5.23 MIL/UL (4.2-5.4); RED CELL DISTRIBUTION WIDTH 13.4 % (11.5-14.5); WHITE BLOOD COUNT (AUTO) 6.6 K/UL (4.0-11.2)
[2017-03-11 08:00] LABS: ALBUMIN 3.9 g/dL (3.4-5.0); BILIRUBIN,TOTAL 0.3 mg/dL (0.2-1.0); CALCIUM 9.1 mg/dL (8.5-10.1); CREATININE 0.7 mg/dL (0.6-1.3); MAGNESIUM 2.4 mg/dL (1.8-2.4); POTASSIUM 3.8 mmol/L (3.5-5.1); TOTAL PROTEIN, SERUM 7.7 g/dL (6.4-8.2)
[2017-03-11] MEDS: SULFAMETH/TRIMETH 800/160 MG TABLET PO SCH (08:52)
[2017-03-11] MEDS: DIVALPROEX 125 MG TABLET.DR PO SCH (08:52)
[2017-03-11] MEDS: risperiDONE 0.5 MG TABLET PO SCH ×3 (08:53→16:35)
[2017-03-11] MEDS: QUETIAPINE FUMARATE 25 MG TABLET PO SCH ×3 (08:53→16:35)
[2017-03-11] MEDS: METOPROLOL TARTRATE 25 MG TABLET PO SCH (08:53)
--- NOTE | 2017-03-11 11:56 | NUR ---
Esthetician Makeup Artist The patient was accepted to [facility] per Dinorah in admissions and [facility] per Shira in admissions however patient's son has refused SNF placement. The patient was also referred to [facility] however patient's son did not state that he would like for the patient to be discharged to [facility]. Per pt's son, he would like to take the patient back home with 24 hour caregiver.
--- NOTE | 2017-03-11 11:59 | NUR ---
DC Note: The patient will be discharged today back home [[address], [place], [place],[address]] where she will be living with her son Elle [phone]. Spoke with Elle who stated that he will pick pack worker the patient today between 2:30-3:00 pm and take her home. Per Elle, a family member will be supervising the patient at home 24 hours a day for the first week and that he plans to hire a 24 hr professional caregiver after that week. The patient will follow-up with her psychiatrist Dr. Meg Beck [[id number], [place] [address] ].
[2017-03-11 15:08] VITALS: BP 134/73
--- NOTE | 2017-03-11 16:45 | NUR ---
PT IS BEING DISCHARGED HOME AND BEING PICKED UP BY HER SON, AMAN. DISCHARGE INSTRUCTIONS WERE GIVEN TO THE SON, WHO VERBALIZES UNDERSTANDING. PT WILL HAVE A CAREGIVER AT HOME. PT IS WILLING TO BE DISCHARGED. NO AGITATION, PT IS CALM AND COOPERATIVE. ALL BELONGINGS RETURNED, FORMS SIGNED.
== END 2017-03-11 16:45 | disposition home or self-care (01) | DRG 885 ==
LOC: GPSOV 14:58 → GPS 03-04 15:09
PROVIDERS: ADMIT Psychiatry & Neurology Psychosomatic Medicine; ATTEND Psychiatry & Neurology Psychosomatic Medicine
DX: F32.3 Major depressive disorder, single episode, severe with psychotic features (principal); F02.81 Dementia in other diseases classified elsewhere, unspecified severity, with behavioral disturbance; E11.65 Type 2 diabetes mellitus with hyperglycemia; N39.0 Urinary tract infection, site not specified; F01.51 Vascular dementia, unspecified severity, with behavioral disturbance; E72.20 Disorder of urea cycle metabolism, unspecified; F29 Unspecified psychosis not due to a substance or known physiological condition; G30.9 Alzheimer's disease, unspecified; E78.5 Hyperlipidemia, unspecified; Z73.6 Limitation of activities due to disability; I10 Essential (primary) hypertension; I70.8 Atherosclerosis of other arteries; K57.90 Diverticulosis of intestine, part unspecified, without perforation or abscess without bleeding; F41.9 Anxiety disorder, unspecified; K76.0 Fatty (change of) liver, not elsewhere classified; G31.9 Degenerative disease of nervous system, unspecified; B96.89 Other specified bacterial agents as the cause of diseases classified elsewhere; K59.00 Constipation, unspecified
CPT/HCPCS: 36415; 80164; 83735; 84100; 85025; 87077; 87086; 93005; 97001

== ENCOUNTER 2019-07-26 14:28 | Emergency (ER) | payer MEDICARE ==
[~2019-07-26] VITALS: Ht 157.5 cm; Wt 47.6 kg
--- NOTE | 2019-07-26 14:28 | NUR ---
patient placed in [facility]. Pt. AAOx1.
--- NOTE | 2019-07-26 14:33 | NUR ---
at bedside to examine patient, pt's son and family at bedside.
--- NOTE | 2019-07-26 15:24 | NUR ---
Patient discharged to home in stable conditon with family. Written and verbal after care instructions given. Patient's family verbalized understanding of instructions.
== END 2019-07-26 15:25 | disposition home or self-care (01) ==
LOC: ER 14:28
DX: S00.33XA Contusion of nose, initial encounter (principal); F32.9 Major depressive disorder, single episode, unspecified; F03.90 Unspecified dementia, unspecified severity, without behavioral disturbance, psychotic disturbance, mood disturbance, and anxiety; W19.XXXA Unspecified fall, initial encounter; Y93.89 Activity, other specified; Y92.89 Other specified places as the place of occurrence of the external cause; Y99.8 Other external cause status
CPT/HCPCS: 70450; A4663

== ENCOUNTER 2022-08-18 21:50 | Inpatient (IN) | payer MEDICARE, OTHER ==
[~2022-08-18] VITALS: Ht 157.5 cm; Wt 43.1 kg
--- NOTE | 2022-08-18 21:55 | NUR ---
Dr. Quevedo at bedside for MSE.
--- NOTE | 2022-08-18 22:17 | NUR ---
Pt out of ER for CT.
[2022-08-18 22:30] LABS: CREATININE 0.7 mg/dL (0.6-1.3); POTASSIUM 3.4 mmol/L (3.5-5.1)
--- NOTE | 2022-08-18 22:31 | NUR ---
Pt back to ER from CT.
[2022-08-18 22:36] LABS: BILIRUBIN,DIRECT 0.1 mg/dL (0.0-0.2); BILIRUBIN,TOTAL 0.3 mg/dL (0.2-1.0); TOTAL PROTEIN, SERUM 7.4 g/dL (6.4-8.2)
[2022-08-18 22:45] LABS: HEMATOCRIT 36.1 % (31.2-41.9); MEAN CORPUSCULAR HEMOGLOBIN 25.4 uug (24.7-32.8); MEAN CORPUSCULAR VOLUME 78.5 fL (75.5-95.3); PLATELET COUNT (AUTO) 346 K/uL (179-408)
--- NOTE | 2022-08-18 22:50 | NUR ---
Pt mostly unable to follow instructions for NIHSS due to severe Alzheimer's dementia and aphasia, completely incoherent and disoriented, per son, unable to understand patient in Farsi. There was some effort by the patient to move extremities when instructed.
[2022-08-18] MEDS ORDERED: QUET25TA PO (23:11)
[2022-08-18] MEDS ORDERED: RISP1TAB97 PO (23:11)
[2022-08-18] MEDS ORDERED: DIVA-78 PO (23:11)
[2022-08-18] MEDS ORDERED: ZOLP10TA2 PO (23:11)
[2022-08-18] MEDS ORDERED: MV-M1TAB18 PO (23:11)
--- NOTE | 2022-08-18 23:15 | NUR ---
Pt given 60 ml water, passed swallow screen.
[2022-08-18] MEDS ORDERED: ASPIRIN 81 MG TAB.CHEW ONE (23:22)
[2022-08-18] MEDS ORDERED: ASPIRIN 81 MG TAB.CHEW PO ONE (23:30)
--- NOTE | 2022-08-19 00:04 | NUR ---
Called [facility] to page Lissy Chiu NP.
--- NOTE | 2022-08-19 00:10 | NUR ---
Dr. Quevedo on panel call with Lissy Chiu NP.
[2022-08-19] MEDS: BLOOD SUGAR DIAGNOSTIC 1 EACH STRIP VI SCH ×4 (07:50→20:39)
[2022-08-19 08:45] VITALS: BP 120/64
[2022-08-19] MEDS ORDERED: DIVALPROEX 500 MG TABLET.DR PO SCH ×2 (09:00)
[2022-08-19] MEDS ORDERED: Medication Not On Formulary EA (Mv-Mn/Iron/FA/Herbal Cmplx#190 (Vitamin D3 Complete Capl PO SCH (09:00)
--- NOTE | 2022-08-19 09:00 | NUR ---
Pt alert arousable to touch. Noted miniscule skin tare on right posterior buttocks. Pix taken. Unable to test drift secondary to pt is very rigid on her upper extremities. IV on left forearm intact flushing well wo resistance. Eyebrows even and moves equally when doing sternal rub. Pt aphasic and mumbles.
[2022-08-19] MEDS: ASPIRIN EC 81 MG TABLET.DR PO SCH (09:51)
--- NOTE | 2022-08-19 11:15 | NUR ---
Jayesh son here to see patient. Per son pt is not within her baseline. Pt used to walk with good stride and speaks appropriately. PT unable to talk and follow commands. Kept pt NPO as ordered.
[2022-08-19] MEDS ORDERED: DIVA125T2 PO (11:30)
[2022-08-19] MEDS: DIVALPROEX 125 MG TABLET.DR PO SCH ×2 (12:41→17:01)
[2022-08-19] MEDS: IV NS 1000 ML 1,000 ML IV PRN (12:43)
--- NOTE | 2022-08-19 13:15 | NUR ---
SW consult requested for a patient on medsurg to assess current living situation. Patient is a 72 year old female admitted to the hospital for stroke ischemic. Patient's primary contact is the patient's son, Jayesh Diaz ([phone]). SW spoke with the patient's son, Jayesh Diaz ([phone]) at bedside. Patient currently resides at [address] [place] [address] with 24/7 caregivers. Patient's son states that the patient needs to go to a usp facility and requested information for [place] usp facility [id number] [place] [id number]. SW spoke with case fitterKarel and provided the patient's son Jayesh Diaz ([phone]) with information for [facility] nursing facility [address] [place] [phone]. global account managerKarel will follow up with the discharge plan.
[2022-08-19] MEDS ORDERED: ERGO2500 PO (13:55)
--- NOTE | 2022-08-19 15:34 | NUR ---
Clinical Social Work Note: VERONIQUE unable to conduct the PHQ 9 Screening with the patient because the patient is alert and oriented X0. SW will follow up to conduct the PHQ 9.
[2022-08-19 16:21] VITALS: BP 142/73
--- NOTE | 2022-08-19 20:00 | NUR ---
Spoke with kim huerta asked about pt's medical hx and asked about MRI Checklist questionnaire and consents with the MRI. Son refused to have his moms blood sugar explained purpose to son but son continues to refuse will continue to monitor bs.
[2022-08-19 20:43] VITALS: BP 146/66
[2022-08-19] MEDS: SIMVASTATIN 40 MG TABLET PO SCH (20:44)
[2022-08-20 00:11] VITALS: BP 152/72
[2022-08-20] MEDS: IV NS 1000 ML 1,000 ML IV PRN ×2 (01:57→15:27)
--- NOTE | 2022-08-20 02:00 | NUR ---
Pt awake checked pts bs resulted 77 trending down. IV NS @ 90 infusing as ordered. Pt was able swallow orange juice without coughing or any signs of aspiration.
[2022-08-20 04:30] VITALS: BP 153/71
[2022-08-20] MEDS: BLOOD SUGAR DIAGNOSTIC 1 EACH STRIP VI SCH ×2 (06:10→12:09)
[2022-08-20 07:23] LABS: HEMATOCRIT 34.5 % (31.2-41.9); MEAN CORPUSCULAR HEMOGLOBIN 25.8 uug (24.7-32.8); MEAN CORPUSCULAR VOLUME 78.7 fL (75.5-95.3); PLATELET COUNT (AUTO) 272 K/uL (179-408)
[2022-08-20 07:43] LABS: CARBON DIOXIDE 27 mmol/L (21-32); CHLORIDE 103 mmol/L (98-107); CHOLESTEROL 168 mg/dL (<200); CREATININE 0.5 mg/dL (0.6-1.3); GLUCOSE 108 mg/dL (74-106); HDL CHOLESTEROL 52 mg/dL (40-60); POTASSIUM 3.6 mmol/L (3.5-5.1); TRIGLYCERIDES 100 MG/DL (30-150); UREA NITROGEN, BLOOD 7 mg/dL (7-18)
[2022-08-20] MEDS: ASPIRIN EC 81 MG TABLET.DR PO SCH (08:53)
[2022-08-20] MEDS: DIVALPROEX 125 MG TABLET.DR PO SCH ×2 (08:53→16:55)
--- NOTE | 2022-08-20 11:30 | NUR ---
PATIENT SEEN AND EXAMINED BY THE SLT FOR SWALLOW EVAL AND SHE STATED THAT PATIENT IS SAFE TO HAVE PUREED DIET WITH THIN LIQUIDS AND SHE PLACED THE ORDER.
[2022-08-20 11:31] VITALS: BP 168/97
[2022-08-20] MEDS: REMEDY ESSENTIAL ZINC PASTE 113 GM TOP SCH ×2 (11:32→21:04)
[2022-08-20 11:50] VITALS: BP 184/106
--- NOTE | 2022-08-20 11:50 | NUR ---
[facility] HERE AND PATIENTS BLOOD PRESSURE AT THIS TIME IS 190/98 RECHECKED MANUALLY AND ITS 184/106 PATIENT IS VERY CONFUSED AND DISORIENTED AGITATED HAS FINE TREMORS AND BILATERAL UPPER EXT VERY RIGID SO I CALLED ANA ROSA AT THE MRI AND NOTIFIED HIM AND HE STATED THAT HE CANNOT ACCEPT PATIENT WITH SUCH HIGH BLOOD PRESSURE WHICH WILL POTENTIALLY GET HIGHER AT THE MRI STATED TO POST POND TILL TOMORROW AND HE WILL LET US KNOW WHEN.
--- NOTE | 2022-08-20 11:55 | NUR ---
CALLED AND NOTIFIED CESAR ASTORGA NP AND HE STATED [facility] MAY TRY TO ORDER SOME MILD MEDS FOR HER BLOOD PRESSURE STATED IT IS DESIRED FOR HER B/P TO BE HIGH.
[2022-08-20 16:00] VITALS: BP 171/90
--- NOTE | 2022-08-20 16:30 | NUR ---
DR YUNG HERE TO SEE PATIENT,PATIENTS SON IS AT THE BEDSIDE NOTED CHEEKS SOMEWHAT PINK AFEBRILE TEMP CHECKED ITS 98.5 DR YUNG STATED WILL GET IN TOUCH WITH CESAR ASTORGA FOR ORDERS FOR HER BLOOD PRESSURE AND ATIVAN TO CALM HER DOWN
[2022-08-20] MEDS: hydrALAZINE HCL 20 MG/1 ML VIAL IV PRN (16:55)
--- NOTE | 2022-08-20 16:55 | NUR ---
NEW ORDER NOTED FROM RIZWAN SOLE SPLITTER PATIENT MEDICATED WITH HYDRALAZINE ORDERED FOR HER ELEVATED BLOOD PRESSURE.WILL CONTINUE TO OBSERVE.
--- NOTE | 2022-08-20 19:20 | NUR ---
PATIENT HAS EMESIS OF PARTLY UNDIGESTED FOOD PARTICLES SON AT THE BEDSIDE AND STATED THAT HE FED HER COCONUT JUICE WATER MELON AND BANANA PATIENT HAS NO ORDER FOR ANTIEMETIC SO I CALLED CESAR ASTORGA WITH ORDERS AND NOTED.
[2022-08-20] MEDS ORDERED: ONDANSETRON 4 MG/2 ML VIAL IV PRN (19:30)
[2022-08-20 20:00] VITALS: BP 181/96
[2022-08-20] MEDS ORDERED: ACETAMINOPHEN 325 MG TABLET PO PRN (20:15)
[2022-08-20] MEDS: SIMVASTATIN 40 MG TABLET PO SCH (21:03)
[2022-08-21] VITALS: BP 183/83
[2022-08-21] MEDS: hydrALAZINE HCL 20 MG/1 ML VIAL IV PRN (00:48)
--- NOTE | 2022-08-21 00:48 | NUR ---
BLOOD PRESSURE AT THIS TIME IS 183/63 HR IS 114 MEDICATED WITH HYDRALAZINE ORDERED WILL OBSERVE
--- NOTE | 2022-08-21 03:15 | NUR ---
PATIENT IS FIGITING CONFUSED DISORIENTED UNABLE TO REDIRECT NOTED WITH TREMORS AND ATTEMPTING TO SAY SOMETHINE BUT SPEECH IS INCOHERENT MEDICATED WITH ATIVAN ORDERED TO ASSIST HER SLEEP AND GET SOME REST WILL CONTINUE TO OBSERVE.
[2022-08-21] MEDS: LORAZEPAM 2 MG/1 ML VIAL IV PRN ×2 (03:17→11:33)
[2022-08-21 04:00] VITALS: BP 131/75
[2022-08-21] MEDS: IV NS 1000 ML 1,000 ML IV PRN ×2 (05:07→21:04)
[2022-08-21 06:21] LABS: HEMATOCRIT 35.6 % (31.2-41.9); MEAN CORPUSCULAR HEMOGLOBIN 25.8 uug (24.7-32.8); MEAN CORPUSCULAR VOLUME 78.1 fL (75.5-95.3); PLATELET COUNT (AUTO) 350 K/uL (179-408)
[2022-08-21 06:27] LABS: CARBON DIOXIDE 24 mmol/L (21-32); CHLORIDE 103 mmol/L (98-107); CREATININE 0.8 mg/dL (0.6-1.3); GLUCOSE 161 mg/dL (74-106); MAGNESIUM 1.9 mg/dL (1.8-2.4); PHOSPHOROUS 3.5 mg/dL (2.5-4.9); POTASSIUM 3.5 mmol/L (3.5-5.1); UREA NITROGEN, BLOOD 10 mg/dL (7-18)
--- NOTE | 2022-08-21 06:30 | NUR ---
MORE QUIET RESTING REPOSITIONED FOR COMFORT NO S/S OF PAIN OR DISCOMFORTS AT THIS TIME WILL CONTINUE TO OBSERVE.
[2022-08-21] MEDS: DIVALPROEX 125 MG TABLET.DR PO SCH ×2 (08:19→17:00)
[2022-08-21] MEDS: ASPIRIN EC 81 MG TABLET.DR PO SCH (08:19)
[2022-08-21] MEDS: REMEDY ESSENTIAL ZINC PASTE 113 GM TOP SCH ×2 (08:20→21:04)
[2022-08-21 11:44] VITALS: BP 147/81
[2022-08-21] MEDS: AMLODIPINE 2.5 MG TABLET PO SCH (12:00)
--- NOTE | 2022-08-21 12:26 | NUR ---
Patient left for MRI at [place]
--- NOTE | 2022-08-21 15:00 | NUR ---
Patient back from MRI. Spoke to patient's son on phone. Will be present in an hour. Will update son.
[2022-08-21] MEDS ORDERED: GADOTERATE MEGLUMINE 5 MMOL/10 ML VIAL IV ONE (15:34)
[2022-08-21 16:15] VITALS: BP 149/79
[2022-08-21] MEDS: ACETAMINOPHEN 650 MG/20.3 ML LIQUID UDC PO PRN (17:35)
[2022-08-21 20:00] VITALS: BP 114/74
--- NOTE | 2022-08-21 20:09 | NUR ---
Patient has temp 101.5 cooling measures given notify Geovany Degroot ORDNANCE TECHNICIAN with order of blood culture x2 and CXR.
[2022-08-21 20:23] LABS: *BILIRUBIN,URIN NEGATIVE (NEGATIVE); *BLOOD, URINE 2+ (NEGATIVE); *CLARITY,URINE CLEAR (CLEAR); *COLOR,URINE YELLOW (YELLOW); *KETONES,URINE NEGATIVE (NEGATIVE); *UROBILINOGEN,URINE 0.2 E.U./dl (NORMAL); LEUKOCYTE ESTERASE ,URINE 2+ (NEGATIVE); NITRITE, URINE NEGATIVE (NEGATIVE); PH,URINE 5.5 (5.0-8.0); UGLUCOSE TRACE (NEGATIVE)
[2022-08-21 20:35] LABS: BACTERIA,URINE MANY /HPF (NONE SEEN); SQUAMOUS EPITHELIAL CELL,UR MODERATE /HPF (NONE SEEN); WBC,URINE TNTC /HPF (0-3)
[2022-08-21] MEDS ORDERED: CEFTRIAXONE 1 G VIAL ONE (20:38)
[2022-08-21] MEDS ORDERED: CEFTRIAXONE 1 G in IV DEXTROSE 5% 50 ML IV SCH (20:45)
[2022-08-21] MEDS: CEFTRIAXONE 1 G in IV DEXTROSE 5% 50 ML IV SCH (20:53)
[2022-08-21] MEDS: ATORVASTATIN 20 MG TABLET PO SCH (20:54)
--- NOTE | 2022-08-21 22:00 | NUR ---
Dominick Degroot has further order of IV abx for the patient, current temp 99.6 orally, cont cooling measures, no s/s of pain or discomfort. cont to monitor.
[2022-08-22 00:41] VITALS: BP 154/89
[2022-08-22] MEDS: ACETAMINOPHEN 650 MG/20.3 ML LIQUID UDC PO PRN (04:20)
[2022-08-22 04:46] VITALS: BP 157/86
--- NOTE | 2022-08-22 05:44 | NUR ---
Patient awake non verbal eyes open, given Tylenol 650 mg po for pain and comfort. Patient respiration even unlabored, afebrile at this time, r upper arm midline patent, Patient has no sob no chest pain, tele sinus tachy, kept clean and dry, cont to monitor.
[2022-08-22 07:05] LABS: MEAN CORPUSCULAR HEMOGLOBIN 25.7 uug (24.7-32.8); MEAN CORPUSCULAR VOLUME 78.7 fL (75.5-95.3); PLATELET COUNT (AUTO) 282 K/uL (179-408)
[2022-08-22 07:18] LABS: CREATININE 1.2 mg/dL (0.6-1.3); MAGNESIUM 1.9 mg/dL (1.8-2.4); PHOSPHOROUS 4.1 mg/dL (2.5-4.9); POTASSIUM 3.6 mmol/L (3.5-5.1)
--- NOTE | 2022-08-22 07:40 | NUR ---
Sleeping, appears comfortable. IVF infusing.
[2022-08-22] MEDS: AZITHROMYCIN IV 500 MG in IV DEXTROSE 5% 250 ML IV SCH (08:48)
[2022-08-22] MEDS: AMLODIPINE 2.5 MG TABLET PO SCH (08:49)
[2022-08-22] MEDS: DIVALPROEX SPRINKLE 125 MG CAP.SPRINK PO SCH ×2 (08:49→17:26)
[2022-08-22] MEDS: ASPIRIN EC 81 MG TABLET.DR PO SCH (08:49)
--- NOTE | 2022-08-22 09:00 | NUR ---
Unable to open eyes spontaneously. Aspiration precaution, assisted with meals but not able to stay awake.
[2022-08-22] MEDS: REMEDY ESSENTIAL ZINC PASTE 113 GM TOP SCH ×2 (09:17→20:13)
[2022-08-22 11:02] VITALS: BP 128/77
--- NOTE | 2022-08-22 13:30 | NUR ---
PT eval done. Max assist x 2, sit at the edge of bed, stand up, unable to ambulate. Son at bedside informed, insisted she can walk
[2022-08-22] MEDS: PROTEIN SUPPLEMENT (PROSTAT) 30 ML LIQUID PO SCH (14:00)
[2022-08-22] MEDS: GLUCERNA SHAKE 237 ML CAN PO SCH ×2 (14:00→17:41)
--- NOTE | 2022-08-22 15:00 | NUR ---
Noted uncomfortable after feeding from son. Informed of aspiration precaution. Repositioned comfortably, on moderate high back rest
[2022-08-22 15:01] VITALS: BP 143/69
--- NOTE | 2022-08-22 17:41 | NUR ---
Able to wake up. max assist with meal, able to take some spoonfuls and take Glucerna with aspiration precaution
[2022-08-22 19:00] VITALS: BP 147/74
[2022-08-22] MEDS: ATORVASTATIN 20 MG TABLET PO SCH (20:12)
[2022-08-22] MEDS: CEFTRIAXONE 1 G in IV DEXTROSE 5% 50 ML IV SCH (20:12)
[2022-08-22] MEDS ORDERED: LORAZEPAM 2 MG/1 ML VIAL IV PRN (21:00)
[2022-08-22] MEDS ORDERED: MORPHINE SULFATE 2 MG/1 ML DISP.SYRIN IV PRN (21:00)
[2022-08-23] VITALS: BP 138/65
[2022-08-23 04:00] VITALS: BP 147/80
[2022-08-23 07:08] LABS: HEMATOCRIT 32.8 % (31.2-41.9); MEAN CORPUSCULAR HEMOGLOBIN 25.5 uug (24.7-32.8); MEAN CORPUSCULAR VOLUME 78.6 fL (75.5-95.3); PLATELET COUNT (AUTO) 227 K/uL (179-408)
[2022-08-23 07:27] LABS: CARBON DIOXIDE 24 mmol/L (21-32); CHLORIDE 108 mmol/L (98-107); GLUCOSE 124 mg/dL (74-106); PHOSPHOROUS 4.5 mg/dL (2.5-4.9); POTASSIUM 3.7 mmol/L (3.5-5.1); UREA NITROGEN, BLOOD 28 mg/dL (7-18)
[2022-08-23] MEDS: GLUCERNA SHAKE 237 ML CAN PO SCH ×3 (08:45→16:47)
[2022-08-23] MEDS: PROTEIN SUPPLEMENT (PROSTAT) 30 ML LIQUID PO SCH (08:46)
[2022-08-23] MEDS: AMLODIPINE 2.5 MG TABLET PO SCH (08:46)
[2022-08-23] MEDS: DIVALPROEX SPRINKLE 125 MG CAP.SPRINK PO SCH ×2 (08:47→16:46)
[2022-08-23] MEDS: REMEDY ESSENTIAL ZINC PASTE 113 GM TOP SCH ×2 (08:47→20:02)
[2022-08-23] MEDS: ASPIRIN EC 81 MG TABLET.DR PO SCH (08:47)
[2022-08-23] MEDS: AZITHROMYCIN IV 500 MG in IV DEXTROSE 5% 250 ML IV SCH (08:49)
--- NOTE | 2022-08-23 11:00 | NUR ---
RESTING COMFORTABLY IN BED NO SS OF PAIN OR DISTRESS. CONTINUE WITH CURRENT TX PLAN.SR ON MONITOR. SEEN BY [employer] PPM CONSULTANT AND CHANGED STATUS TO M/S
[2022-08-23 11:14] VITALS: BP 146/89
--- NOTE | 2022-08-23 14:28 | NUR ---
CONTINUE WITH IV ANTIBIOTIC FOR UTI NO ADVERSE REACTION NOTED. CLOSELY MONITORED
[2022-08-23 15:12] VITALS: BP 147/69
--- NOTE | 2022-08-23 16:21 | NUR ---
CONTINUE WITH PT, OT, ST ORDERED, SON IN AND UPDATED PLAN OF CARE. PLAN SNF WHEN STABLE
--- NOTE | 2022-08-23 19:24 | NUR ---
NSG: Received patient lying in bed. no c/o pain or discomfort at this time. call light w/in reach.
--- NOTE | 2022-08-23 19:50 | NUR ---
nsg: patient temp 99.2 .tylenol 650 mg po given. cooling measure provided.
[2022-08-23] MEDS: ACETAMINOPHEN 650 MG/20.3 ML LIQUID UDC PO PRN (19:55)
[2022-08-23 20:00] VITALS: BP 154/71
[2022-08-23] MEDS: ATORVASTATIN 20 MG TABLET PO SCH (20:01)
[2022-08-23] MEDS: CEFTRIAXONE 1 G in IV DEXTROSE 5% 50 ML IV SCH (20:11)
--- NOTE | 2022-08-23 21:00 | NUR ---
NSG; temp is 97.9 now prn for fever effective.
[2022-08-24] MEDS ORDERED: IV NS 1000 ML 1,000 ML IV SCH (01:15)
[2022-08-24 04:00] VITALS: BP 129/74
--- NOTE | 2022-08-24 05:29 | NUR ---
NSG: Patient lying in bed ,awake non verbal. Respiration even and unlabored, afebrile at this time, RIGHT upper arm midline patent, Patient has no sob @ this time. assisted with adl's. reposition for comfort and skin safety.kept clean and dry, call light w/in reach.
[2022-08-24] MEDS: IV NS 1000 ML 1,000 ML IV PRN ×2 (06:32→20:15)
[2022-08-24 07:03] LABS: HEMATOCRIT 31.5 % (31.2-41.9); MEAN CORPUSCULAR HEMOGLOBIN 25.8 uug (24.7-32.8); MEAN CORPUSCULAR VOLUME 78.2 fL (75.5-95.3); PLATELET COUNT (AUTO) 228 K/uL (179-408)
[2022-08-24 07:16] LABS: ALANINE AMINOTRANSFERASE 21 U/L (14-59); ALKALINE PHOSPHATASE 94 U/L (50-136); ASPARTATE AMINOTRANSFERASE 11 U/L (15-37); BILIRUBIN,TOTAL 0.3 mg/dL (0.2-1.0); CARBON DIOXIDE 24 mmol/L (21-32); CHLORIDE 107 mmol/L (98-107); CREATININE 3.2 mg/dL (0.6-1.3); GLUCOSE 108 mg/dL (74-106); MAGNESIUM 2.2 mg/dL (1.8-2.4); PHOSPHOROUS 4.7 mg/dL (2.5-4.9); POTASSIUM 3.8 mmol/L (3.5-5.1); TOTAL PROTEIN, SERUM 6.5 g/dL (6.4-8.2); UREA NITROGEN, BLOOD 37 mg/dL (7-18)
[2022-08-24 08:30] VITALS: BP 170/65
[2022-08-24] MEDS: GLUCERNA SHAKE 237 ML CAN PO SCH ×3 (08:58→17:28)
[2022-08-24] MEDS: PROTEIN SUPPLEMENT (PROSTAT) 30 ML LIQUID PO SCH (08:58)
[2022-08-24] MEDS: AMLODIPINE 2.5 MG TABLET PO SCH (09:00)
[2022-08-24] MEDS: ASPIRIN EC 81 MG TABLET.DR PO SCH (09:00)
--- NOTE | 2022-08-24 10:17 | NUR ---
Pt is awake, tracks with eyes periodically. Pt was to have kidney US, bladder distention noted, 1333cc + urine retained in bladder . Notified MD and inserted Chairez 16fr. Urine drained of 1400cc and clamped afterwards. Will unclamp after 1hr to allow continuous drainage. Pt now appears more calm and mobility of arms and legs noted. Facial grimace relieved. Will continue to monitor pt.
[2022-08-24] MEDS: AZITHROMYCIN IV 500 MG in IV DEXTROSE 5% 250 ML IV SCH (11:01)
[2022-08-24] MEDS: REMEDY ESSENTIAL ZINC PASTE 113 GM TOP SCH ×2 (11:02→20:08)
[2022-08-24] MEDS: hydrALAZINE HCL 20 MG/1 ML VIAL IV PRN (11:22)
[2022-08-24 15:04] VITALS: BP 126/59
[2022-08-24] MEDS: DIVALPROEX SPRINKLE 125 MG CAP.SPRINK PO SCH (17:28)
--- NOTE | 2022-08-24 18:58 | NUR ---
Pt is awake and alert, responsive to son at bedside speaking Farsi. Pt follows command when son asks her to open mouth, successful in feeding her a few spoons of dinner and crushed medications. Pt alcala draining yellow urine. sediment improved since this morning but still present and visible. Pt does not seem to be in any acute distress, easily arousable, will endorse to night worker.
[2022-08-24 20:00] VITALS: BP 116/71
[2022-08-24] MEDS: CEFTRIAXONE 1 G in IV DEXTROSE 5% 50 ML IV SCH (20:06)
[2022-08-24] MEDS: ATORVASTATIN 20 MG TABLET PO SCH (20:07)
[2022-08-25 04:00] VITALS: BP 137/70
[2022-08-25 06:52] LABS: HEMATOCRIT 29.2 % (31.2-41.9); MEAN CORPUSCULAR HEMOGLOBIN 25.9 uug (24.7-32.8); MEAN CORPUSCULAR VOLUME 77.2 fL (75.5-95.3); PLATELET COUNT (AUTO) 246 K/uL (179-408)
[2022-08-25 07:08] LABS: CREATININE 0.9 mg/dL (0.6-1.3); MAGNESIUM 2.2 mg/dL (1.8-2.4)
[2022-08-25] MEDS: IV NS 1000 ML 1,000 ML IV PRN ×2 (07:16→19:40)
[2022-08-25 07:30] LABS: POTASSIUM 2.8 mmol/L (3.5-5.1)
--- NOTE | 2022-08-25 08:23 | NUR ---
Notified Dr. Lilliana Camilo regarding critical lab result of potassium with order for potassium 60mEq PO x 1 dose.
[2022-08-25] MEDS ORDERED: POTASSIUM CHLORIDE 20 MEQ POWDER PACKET PO ONE ×3 (08:30→12:00)
[2022-08-25] MEDS: ASPIRIN EC 81 MG TABLET.DR PO SCH (08:36)
[2022-08-25] MEDS: AZITHROMYCIN IV 500 MG in IV DEXTROSE 5% 250 ML IV SCH (08:38)
[2022-08-25] MEDS: PROTEIN SUPPLEMENT (PROSTAT) 30 ML LIQUID PO SCH (08:40)
[2022-08-25] MEDS: AMLODIPINE 2.5 MG TABLET PO SCH (08:40)
[2022-08-25] MEDS: GLUCERNA SHAKE 237 ML CAN PO SCH ×3 (08:40→17:08)
[2022-08-25] MEDS ORDERED: ERGOCALCIFEROL 50,000 UNIT CAPSULE PO SCH (09:00)
[2022-08-25] MEDS: REMEDY ESSENTIAL ZINC PASTE 113 GM TOP SCH ×2 (09:00→20:48)
[2022-08-25 11:55] VITALS: BP 143/67
[2022-08-25 15:53] VITALS: BP 125/72
[2022-08-25] MEDS: DIVALPROEX SPRINKLE 125 MG CAP.SPRINK PO SCH (17:08)
[2022-08-25 20:00] VITALS: BP 171/66
[2022-08-25] MEDS: CEFTRIAXONE 1 G in IV DEXTROSE 5% 50 ML IV SCH (20:47)
[2022-08-25] MEDS: ATORVASTATIN 20 MG TABLET PO SCH (20:47)
[2022-08-26 04:00] VITALS: BP 100/44
[2022-08-26] MEDS: IV NS 1000 ML 1,000 ML IV PRN (06:08)
[2022-08-26 06:22] LABS: MEAN CORPUSCULAR HEMOGLOBIN 26.1 uug (24.7-32.8); MEAN CORPUSCULAR VOLUME 77.9 fL (75.5-95.3); PLATELET COUNT (AUTO) 221 K/uL (179-408)
--- NOTE | 2022-08-26 06:44 | NUR ---
Chairez cath removed as ordered. Will endorse to incoming shift.
[2022-08-26 06:49] LABS: CARBON DIOXIDE 28 mmol/L (21-32); CHLORIDE 107 mmol/L (98-107); CREATININE 0.6 mg/dL (0.6-1.3); GLUCOSE 113 mg/dL (74-106); MAGNESIUM 1.9 mg/dL (1.8-2.4); PHOSPHOROUS 2.8 mg/dL (2.5-4.9); POTASSIUM 3.5 mmol/L (3.5-5.1); UREA NITROGEN, BLOOD 9 mg/dL (7-18)
[2022-08-26] MEDS: AZITHROMYCIN IV 500 MG in IV DEXTROSE 5% 250 ML IV SCH (08:31)
[2022-08-26] MEDS: REMEDY ESSENTIAL ZINC PASTE 113 GM TOP SCH (08:41)
[2022-08-26] MEDS: AMLODIPINE 2.5 MG TABLET PO SCH (08:41)
[2022-08-26] MEDS: PROTEIN SUPPLEMENT (PROSTAT) 30 ML LIQUID PO SCH (08:41)
[2022-08-26] MEDS: GLUCERNA SHAKE 237 ML CAN PO SCH ×3 (08:41→16:45)
[2022-08-26] MEDS ORDERED: ASPIRIN 81 MG TAB.CHEW PO SCH (09:00)
[2022-08-26] MEDS ORDERED: NITR100C6 PO (10:45)
[2022-08-26] MEDS ORDERED: NUT.237L36 PO (10:45)
[2022-08-26] MEDS ORDERED: PROT30LI PO (10:45)
[2022-08-26] MEDS ORDERED: AMLO2.5T4 PO (10:45)
[2022-08-26 11:59] VITALS: BP 129/59
[2022-08-26 16:04] VITALS: BP 154/49
--- NOTE | 2022-08-26 16:25 | NUR ---
RN GAVE DISCHARGE REPORT TO [facility] AT [facility]. RN ANSWERED ALL QUESTIONS AT THIS TIME.
[2022-08-26] MEDS: DIVALPROEX SPRINKLE 125 MG CAP.SPRINK PO SCH (17:04)
--- NOTE | 2022-08-26 17:21 | NUR ---
Patient discharged to [place], stable, alcala intact, draining yellow clear urine, IV removed, ID removed, belongings are sent with general manager [employer], no skin issues noted. patient tolerated her meals. no acute distress noted.
== END 2022-08-26 17:34 | DRG 193 ==
LOC: ER 21:50 → TELE3 08-19 07:42 → MEDSURG3 08-23 09:15
PROVIDERS: ADMIT Student in an Organized Health Care Education/Training Program; ATTEND Nurse Practitioner Acute Care
PROC: 05H533Z Insertion of Infusion Device into Right Subclavian Vein, Percutaneous Approach (ICD-10-PCS; principal; 2022-08-22)
PROC: B546ZZA Ultrasonography of Right Subclavian Vein, Guidance (ICD-10-PCS; 2022-08-22)
DX: J15.9 Unspecified bacterial pneumonia (principal); G93.41 Metabolic encephalopathy; N17.0 Acute kidney failure with tubular necrosis; N39.0 Urinary tract infection, site not specified; E44.1 Mild protein-calorie malnutrition; Z68.1 Body mass index [BMI] 19.9 or less, adult; R47.1 Dysarthria and anarthria; R29.810 Facial weakness; B96.20 Unspecified Escherichia coli [E. coli] as the cause of diseases classified elsewhere; I10 Essential (primary) hypertension; R33.9 Retention of urine, unspecified; E87.6 Hypokalemia; G30.9 Alzheimer's disease, unspecified; F02.80 Dementia in other diseases classified elsewhere, unspecified severity, without behavioral disturbance, psychotic disturbance, mood disturbance, and anxiety; N13.9 Obstructive and reflux uropathy, unspecified; Z85.3 Personal history of malignant neoplasm of breast; Z20.822 Contact with and (suspected) exposure to COVID-19
CPT/HCPCS: 36415; 70450; 70553; 71045; 76770; 80164; 83605; 83735; 84100; 84443; 85025; 85730; 87040; 87077; 87086; 93005; 93307; 93880; A6209; A9575; G0378; J0360; J0456; J0696; J2060; J2270; J2405; J7040; J7050